=== PATIENT | female | born 1965 | race Caucasian/White ===

== ENCOUNTER 2018-09-30 07:16 | Outpatient (CLI) | payer OTHER ==
--- NOTE | 2018-09-30 10:03 | MRI ---
MRI OF BRAIN WITH AND WITHOUT CONTRAST: Multiple axial tomograms are obtained of the brain pre and post IV contrast administration. 14 cc Mu ltiHance was administered IV. INDICATION: Hypoesthesia of skin. Memory loss. FINDINGS: The ventricles have normal size and position. No evidence of restricted diffusion. No mass or edema . No white matter abnormality. No abnormal enhancement. Visualized intracranial internal carotid a rteries and cerebral arteries showed expected flow voids. Dural venous sinuses appear open. Paranasal sinuses and mastoids appear clear. IMPRESSION: Unremarkable MRI brain. POS: [facility]
[2018-09-30] MEDS ORDERED: Gadobenate Dimeglumine 529 MG/1 ML (20ML VIAL) ONE (13:27)
== END 2018-09-30 07:17 | disposition home or self-care (01) ==
LOC: BICMRI 07:16
PROVIDERS: ATTEND Psychiatry & Neurology Neurology
DX: R20.1 Hypoesthesia of skin (principal)
CPT/HCPCS: 70553; A9579

== ENCOUNTER 2021-11-25 21:15 | Inpatient (IN) | payer OTHER ==
[2021-11-25] MEDS ORDERED: Fentanyl 250 MCG/5 ML VIAL ONE (22:27)
[2021-11-25 23:07] LABS: SARS-CoV-2 NAA Rapid Test Not Detected (NotDetected)
[2021-11-25] MEDS ORDERED: Ondansetron PF 4 MG/2 ML Vial ONE (23:09)
[2021-11-25] MEDS ORDERED: Rocuronium Bromide 10 MG/ML (10ML VIAL) ONE (23:09)
[2021-11-25] MEDS ORDERED: Ketorolac Tromethamine 30 MG/ML VIAL ONE (23:09)
[2021-11-25] MEDS ORDERED: Lidocaine 1% PF 5 ML VIAL ONE (23:09)
[2021-11-25] MEDS ORDERED: Dexamethasone 20 MG/5 ML VIAL ONE (23:09)
[2021-11-25] MEDS ORDERED: PROPOFOL 200 MG/20 ML VIAL ONE ×2 (23:09)
[2021-11-25] MEDS ORDERED: Sodium Chloride 0.9% 30 ML ONE (23:29)
[2021-11-26] MEDS ORDERED: Promethazine HCl 25 MG/ML VIAL IVPB PRN ×2 (00:06→00:42)
[2021-11-26] MEDS ORDERED: Ondansetron HCl/PF 4 MG/2 ML Vial IVP PRN ×2 (00:06→00:42)
[2021-11-26] MEDS ORDERED: Meperidine HCl/PF 25 MG/ML VIAL SLOW IVP PRN (00:06)
[2021-11-26] MEDS ORDERED: Promethazine HCl 25 MG/ML VIAL IM PRN ×4 (00:06→00:42)
[2021-11-26] MEDS ORDERED: Ondansetron PF 4 MG/2 ML Vial IVP PRN ×2 (00:36→00:42)
[2021-11-26] MEDS ORDERED: hydrALAZINE 20 MG/ML VIAL SLOW IVP PRN (00:36)
[2021-11-26] MEDS ORDERED: diphenhydrAMINE 50 MG/ML VIAL IVP PRN (00:42)
[2021-11-26] MEDS ORDERED: PACU-Morphine 4MG/ML VIAL SLOW IVP PRN (00:42)
[2021-11-26] MEDS ORDERED: diphenhydrAMINE 25 MG CAP PO PRN (00:42)
[2021-11-26] MEDS ORDERED: Naloxone HCl 0.4 mg/ml Vial IV PRN (00:42)
[2021-11-26] MEDS ORDERED: diphenhydrAMINE 50 MG/ML VIAL IM PRN (00:42)
[2021-11-26] MEDS ORDERED: Zolpidem Tartrate 5 MG TAB PO PRN (00:42)
[2021-11-26] MEDS ORDERED: Communication Order-Pharmacy FS SCH (00:45)
[2021-11-26] MEDS ORDERED: Fentanyl 100 MCG/2 ML VIAL ONE ×3 (00:48→01:54)
[2021-11-26] MEDS ORDERED: Fentanyl CADD 100 ML IVPB PRN (01:00)
[2021-11-26 03:30] VITALS: BMI 23.9
[2021-11-26] MEDS: Sodium Chloride 0.9% 1,000 ML IV SCH ×3 (04:11→17:24)
[2021-11-26] MEDS ORDERED: Ketorolac Tromethamine 30 MG/ML VIAL IVP SCH (06:00)
[2021-11-26] MEDS ORDERED: Meropenem 1 GM in Sodium Chloride 0.9% 100 ML IVPB SCH (06:00)
[2021-11-26] MEDS: Ketorolac Tromethamine 30 MG/ML VIAL IVP SCH ×4 (06:08→23:08)
[2021-11-26] MEDS: Famotidine/PF 20 mg/2ml Vial SLOW IVP SCH ×2 (08:48→21:20)
[2021-11-26] MEDS: Enoxaparin Sodium 40 MG/0.4 ML SYRINGE SC SCH (08:49)
[2021-11-26] MEDS: Pantoprazole 40 MG VIAL IVP SCH ×2 (08:49→21:19)
[2021-11-26] MEDS: Famotidine 20 MG TAB PO SCH ×2 (09:00→20:30)
[2021-11-26] MEDS: Meropenem 1 GM in Sodium Chloride 0.9% 100 ML IVPB SCH ×2 (15:03→21:19)
[2021-11-26 16:16] LABS: #Lymphocytes 0.8 thou/uL (1.20-3.40); #Monocytes 0.8 thou/uL (0.11-0.59); %Basophils 0.1 % (0.0-1.0); %Lymphocytes 6.1 % (21.0-51.0); %Monocytes 6.7 % (0.0-10.0); %Neutrophils 87.2 % (42.0-75.0); Hemoglobin 12.6 g/dL (12.0-16.0); Mean Corpuscular HGB CONC 32.1 g/dL (32.0-36.0); Mean Corpuscular Hemoglobin 29.5 pg (27.0-31.0); Mean Corpuscular Volume 91.8 fL (78.0-98.0); Mean Platelet Volume 7.6 fL (7.4-10.4); Platelet Count 205 thou/uL (130-400); RBC Distribution Width 12.8 % (11.5-14.5); Red Blood Cell (RBC) Count 4.26 mill/uL (4.20-5.40); White Blood Cell (WBC) Count 12.6 thou/uL (4.8-10.8)
[2021-11-26 16:37] LABS: Anion Gap 10 mmol/L (10-20); BUN (Urea Nitrogen) 11 mg/dL (9.8-20.1); Calc. Creatinine Clearance 97 mL/min (70-130); Calcium 7.9 mg/dL (7.8-10.44); Carbon Dioxide 24 mmol/L (22-29); Chloride 112 mmol/L (98-107); Glucose 98 mg/dL (70-105); Potassium 4.6 mmol/L (3.5-5.1); Sodium 141 mmol/L (136-145)
[2021-11-27] MEDS: Sodium Chloride 0.9% 1,000 ML IV SCH ×3 (01:51→20:41)
[2021-11-27] MEDS: Meropenem 1 GM in Sodium Chloride 0.9% 100 ML IVPB SCH ×3 (05:07→22:33)
[2021-11-27] MEDS: Ketorolac Tromethamine 30 MG/ML VIAL IVP SCH ×3 (05:07→19:56)
[2021-11-27 05:13] LABS: #Monocytes 0.5 thou/uL (0.11-0.59); Mean Corpuscular Hemoglobin 29.8 pg (27.0-31.0); RBC Distribution Width 12.8 % (11.5-14.5)
[2021-11-27 05:22] LABS: #Lymphocytes 0.7 thou/uL (1.20-3.40); #Neutrophils 9.5 thou/uL (1.40-6.50); %Basophils 0.1 % (0.0-1.0); %Eosinophils 0.1 % (0.0-10.0); %Lymphocytes 6.6 % (21.0-51.0); %Monocytes 4.5 % (0.0-10.0); %Neutrophils 88.7 % (42.0-75.0); Hemoglobin 12.4 g/dL (12.0-16.0); Mean Corpuscular HGB CONC 32.6 g/dL (32.0-36.0); Mean Corpuscular Volume 91.5 fL (78.0-98.0); Mean Platelet Volume 8.5 fL (7.4-10.4); Platelet Count 206 thou/uL (130-400); Red Blood Cell (RBC) Count 4.15 mill/uL (4.20-5.40); White Blood Cell (WBC) Count 10.7 thou/uL (4.8-10.8)
[2021-11-27 05:36] LABS: Anion Gap 10 mmol/L (10-20); BUN (Urea Nitrogen) 16 mg/dL (9.8-20.1); Calc. Creatinine Clearance 100 mL/min (70-130); Calcium 8.2 mg/dL (7.8-10.44); Carbon Dioxide 22 mmol/L (22-29); Chloride 110 mmol/L (98-107); Glucose 84 mg/dL (70-105); Sodium 138 mmol/L (136-145)
[2021-11-27] MEDS: Famotidine/PF 20 mg/2ml Vial SLOW IVP SCH ×2 (08:31→20:42)
[2021-11-27] MEDS ORDERED: GASTROGRAFIN 30 ML BOT ONE (09:46)
[2021-11-27] MEDS: Enoxaparin Sodium 40 MG/0.4 ML SYRINGE SC SCH (09:56)
[2021-11-27] MEDS: Pantoprazole 40 MG VIAL IVP SCH ×2 (09:56→20:42)
[2021-11-27] MEDS: Famotidine 20 MG TAB PO SCH ×2 (09:56→20:42)
[2021-11-28] MEDS: Ketorolac Tromethamine 30 MG/ML VIAL IVP SCH ×5 (00:11→23:53)
[2021-11-28] MEDS: Meropenem 1 GM in Sodium Chloride 0.9% 100 ML IVPB SCH ×3 (05:47→22:41)
[2021-11-28] MEDS: Sodium Chloride 0.9% 1,000 ML IV SCH ×2 (05:49→20:16)
[2021-11-28] MEDS: Enoxaparin Sodium 40 MG/0.4 ML SYRINGE SC SCH (09:55)
[2021-11-28] MEDS: Famotidine/PF 20 mg/2ml Vial SLOW IVP SCH (09:55)
[2021-11-28] MEDS: Pantoprazole 40 MG VIAL IVP SCH ×2 (09:55→20:11)
[2021-11-28] MEDS: Famotidine 20 MG TAB PO SCH (09:57)
[2021-11-28] MEDS ORDERED: Diazepam 5 MG TAB PO PRN (10:04)
[2021-11-28] MEDS ORDERED: Temazepam 15 MG CAP PO PRN (10:04)
[2021-11-28] MEDS ORDERED: traMADol HCl 50 MG TAB PO PRN ×2 (10:12→10:13)
[2021-11-28] MEDS: OXcarbazepine 300 MG TAB PO SCH (20:11)
[2021-11-28] MEDS: HYDROcodone/Acetaminophen 5/325 mg Tablet PO PRN (20:18)
[2021-11-29] MEDS: Sodium Chloride 0.9% 1,000 ML IV SCH ×2 (06:04→12:12)
[2021-11-29] MEDS: Meropenem 1 GM in Sodium Chloride 0.9% 100 ML IVPB SCH (06:05)
[2021-11-29] MEDS: Ketorolac Tromethamine 30 MG/ML VIAL IVP SCH ×3 (06:05→17:44)
[2021-11-29] MEDS: DULoxetine 30 MG CAP PO SCH (08:42)
[2021-11-29] MEDS: OXcarbazepine 300 MG TAB PO SCH ×2 (08:42→20:44)
[2021-11-29] MEDS: lamoTRIgine 100 MG TAB PO SCH (08:42)
[2021-11-29] MEDS: Pantoprazole 40 MG VIAL IVP SCH ×2 (08:42→20:44)
[2021-11-29] MEDS: Propranolol HCl LA 60 MG CAP PO SCH (08:43)
[2021-11-29] MEDS ORDERED: FLU VACC QS2021-22(6MOS UP)/PF 60 MCG/0.5 ML SYRINGE IM ONE (09:00)
[2021-11-29] MEDS: Enoxaparin Sodium 40 MG/0.4 ML SYRINGE SC SCH (14:20)
[2021-11-29] MEDS: HYDROcodone/Acetaminophen 5/325 mg Tablet PO PRN (18:04)
[2021-11-29 22:00] VITALS: TEMP 98.2
[2021-11-30] MEDS: Sodium Chloride 0.9% 1,000 ML IV SCH ×2 (00:25→10:09)
[2021-11-30] MEDS: Ketorolac Tromethamine 30 MG/ML VIAL IVP SCH ×3 (00:37→12:04)
[2021-11-30] MEDS: HYDROcodone/Acetaminophen 5/325 mg Tablet PO PRN ×2 (01:42→06:23)
[2021-11-30 09:28] VITALS: BP 131/77
[2021-11-30] MEDS: OXcarbazepine 300 MG TAB PO SCH ×2 (10:07→10:42)
[2021-11-30] MEDS: DULoxetine 30 MG CAP PO SCH (10:07)
[2021-11-30] MEDS: lamoTRIgine 100 MG TAB PO SCH (10:07)
[2021-11-30] MEDS: Enoxaparin Sodium 40 MG/0.4 ML SYRINGE SC SCH (11:44)
[2021-11-30] MEDS: Propranolol HCl LA 60 MG CAP PO SCH (11:44)
[2021-11-30] MEDS: Pantoprazole 40 MG VIAL IVP SCH (11:44)
== END 2021-11-30 14:40 | disposition home or self-care (01) | DRG 330 ==
LOC: ERS 21:15 → SDC/OP 23:11 → MSONC 23:59
PROVIDERS: ADMIT Surgery; ATTEND Surgery
PROC: 0DQA0ZZ Repair Jejunum, Open Approach (ICD-10-PCS; principal; 2021-11-25)
PROC: 0DUU07Z Supplement Omentum with Autologous Tissue Substitute, Open Approach (ICD-10-PCS; 2021-11-25)
PROC: 02HV33Z Insertion of Infusion Device into Superior Vena Cava, Percutaneous Approach (ICD-10-PCS; 2021-11-25)
DX: K28.5 Chronic or unspecified gastrojejunal ulcer with perforation (principal); K52.1 Toxic gastroenteritis and colitis; Z20.822 Contact with and (suspected) exposure to COVID-19; I10 Essential (primary) hypertension; E78.5 Hyperlipidemia, unspecified; M79.7 Fibromyalgia; G62.9 Polyneuropathy, unspecified; M81.0 Age-related osteoporosis without current pathological fracture; F41.9 Anxiety disorder, unspecified; F31.9 Bipolar disorder, unspecified; F43.10 Post-traumatic stress disorder, unspecified; K66.8 Other specified disorders of peritoneum; F17.210 Nicotine dependence, cigarettes, uncomplicated; T36.95XA Adverse effect of unspecified systemic antibiotic, initial encounter; Z98.84 Bariatric surgery status; Z90.710 Acquired absence of both cervix and uterus; I25.2 Old myocardial infarction; Z88.0 Allergy status to penicillin; Z88.5 Allergy status to narcotic agent; Z88.8 Allergy status to other drugs, medicaments and biological substances; Z79.899 Other long term (current) drug therapy
CPT/HCPCS: 36415; 71045; 74220; 80048; 85025; 87324; 87449; 99285; C1751; C9113; J1100; J1650; J1885; J2185; J2405; J2704; J3010; J3490; J7050; Q9963; S0028; U0002

== ENCOUNTER 2022-04-22 13:52 | Emergency (ER) | payer OTHER ==
[2022-04-22 14:49] LABS: Acetaminophen Less than 10.0 mcg/mL (10.0-30.0)
[2022-04-23 01:26] LABS: SARS-CoV-2 NAA Rapid Test Not Detected (NotDetected)
[2022-04-23] MEDS ORDERED: Acetaminophen 500 MG TAB ONE (07:32)
== END 2022-04-23 09:48 ==
LOC: ERS 13:52
DX: T40.2X2A Poisoning by other opioids, intentional self-harm, initial encounter (principal); Z20.822 Contact with and (suspected) exposure to COVID-19; I10 Essential (primary) hypertension; E78.5 Hyperlipidemia, unspecified; M81.0 Age-related osteoporosis without current pathological fracture; F17.210 Nicotine dependence, cigarettes, uncomplicated; F20.9 Schizophrenia, unspecified; F41.9 Anxiety disorder, unspecified; F31.9 Bipolar disorder, unspecified
CPT/HCPCS: 36415; 80143; 99285; 80307; U0002

== ENCOUNTER 2024-08-22 17:37 | Inpatient (IN) | payer OTHER ==
[2024-08-22] MEDS ORDERED: fentaNYL PF 100 MCG/2 ML SYRINGE ONE (18:28)
[2024-08-22] MEDS ORDERED: PROPOFOL 20 ML ONE (18:28)
[2024-08-22] MEDS ORDERED: Lidocaine 2% PF 5 ML VIAL ONE (18:28)
[2024-08-22] MEDS ORDERED: Rocuronium Bromide 10 MG/ML (10ML VIAL) ONE (18:28)
[2024-08-22] MEDS ORDERED: Famotidine/PF 20 mg/2ml Vial ONE (18:30)
[2024-08-22] MEDS ORDERED: Morphine 2 MG/ML VIAL ONE (18:46)
[2024-08-22] MEDS ORDERED: Ondansetron PF 4 MG/2 ML Vial ONE ×2 (18:46→20:31)
[2024-08-22] MEDS ORDERED: PHENYLEPHRINE-NS 100 MCG/ML 10 ML SYRINGE ONE (20:07)
[2024-08-22] MEDS ORDERED: HYDROmorphone 2 MG/ML VIAL SLOW IVP PRN (20:25)
[2024-08-22] MEDS ORDERED: Ondansetron HCl/PF 4 MG/2 ML Vial IVP PRN (20:25)
[2024-08-22] MEDS ORDERED: Promethazine HCl 25 MG/ML VIAL IM PRN ×2 (20:25→21:29)
[2024-08-22] MEDS ORDERED: FENTANYL 500 MCG/10 ML VIAL 2,000 MCG in Sodium Chloride 0.9% 60 ML IV PRN (20:25)
[2024-08-22] MEDS ORDERED: Meperidine HCl/PF 25 MG/ML VIAL SLOW IVP PRN (20:25)
[2024-08-22] MEDS ORDERED: Dexamethasone 4 mg/ml Vial ONE (20:31)
[2024-08-22] MEDS ORDERED: SUGAMMADEX SODIUM 200 MG/2 ML VIAL ONE (20:31)
[2024-08-22] MEDS ORDERED: Ketorolac Tromethamine 30 MG (1 mL) VIAL ONE (20:31)
[2024-08-22] MEDS ORDERED: Ondansetron PF 4 MG/2 ML Vial IVP PRN (21:29)
[2024-08-22] MEDS ORDERED: Glucagon 1 MG/ML KIT IM PRN (21:29)
[2024-08-22] MEDS ORDERED: Dextrose 50% Abboject 50 ML SYRINGE SLOW IVP PRN (21:29)
[2024-08-22] MEDS ORDERED: Ipratropium/Albuterol 3 ML NEB NEB PRN (21:29)
[2024-08-22] MEDS ORDERED: hydrALAZINE 20 MG/ML VIAL SLOW IVP PRN (21:29)
[2024-08-22] MEDS ORDERED: Dextrose 5% in Water 1,000 ML IV PRN (21:29)
[2024-08-22 21:59] LABS: #Basophils Less than 0.03 10x3/uL (0.0-0.2); %Eosinophils 1.6 % (0.0-10.0); %Monocytes 4.6 % (0.0-10.0); %Neutrophils 84.4 % (42.0-75.0); Hematocrit 27.5 % (36.0-47.0); Hemoglobin 9.8 g/dL (12.0-16.0); Mean Corpuscular HGB CONC 35.6 g/dL (32.0-36.0); Mean Corpuscular Hemoglobin 27.3 pg (27.0-31.0); Mean Corpuscular Volume 76.6 fL (78.0-98.0); Mean Platelet Volume 8.8 fL (7.4-10.4); Platelet Count 347 10x3/uL (130-400); RBC Distribution Width 17.6 % (11.5-14.5); Red Blood Cell (RBC) Count 3.59 mill/uL (4.20-5.40)
[2024-08-22] MEDS: D5 1/2 NS w/20 mEq KCL 1,000 ML IV SCH (21:59)
[2024-08-22] MEDS ORDERED: D5 1/2 NS w/20 mEq KCL 1,000 ML ONE (21:59)
[2024-08-22 22:24] LABS: ALT (SGPT) 25 U/L (8-55); AST (SGOT) 37 U/L (5-34); Albumin 1.3 g/dL (3.5-5.0); Alkaline Phosphatase 152 U/L (40-110); Anion Gap 13 mmol/L (10-20); BUN (Urea Nitrogen) 8 mg/dL (9.8-20.1); Bilirubin, Total 0.6 mg/dL (0.2-1.2); Calc. Creatinine Clearance 0 mL/min (70-130); Calcium 6.9 mg/dL (7.8-10.44); Carbon Dioxide 23 mmol/L (22-29); Chloride 102 mmol/L (98-107); Estimated GFR 112; Globulin 2.7 g/dL (2.4-3.5); Glucose 76 mg/dL (70-105); Sodium 135 mmol/L (136-145)
[2024-08-22] MEDS: metroNIDAZOLE 500 MG in Premix 1 BAG IVPB SCH (23:27)
[2024-08-22] MEDS: CALCIUM GLUCONATE IVPB SCH (23:28)
[2024-08-22] MEDS: SODIUM CHLORIDE 0.9% IVPB SCH (23:28)
[2024-08-23 06:30] LABS: #Basophils Less than 0.03 10x3/uL (0.0-0.2); #Eosinophils Less than 0.03 10x3/uL (0.0-0.7); %Basophils 0.1 % (0.0-1.0); %Lymphocytes 1.7 % (21.0-51.0); %Neutrophils 92.7 % (42.0-75.0); Hematocrit 28.5 % (36.0-47.0); Hemoglobin 9.8 g/dL (12.0-16.0); Mean Corpuscular HGB CONC 34.4 g/dL (32.0-36.0); Mean Corpuscular Hemoglobin 26.8 pg (27.0-31.0); Mean Corpuscular Volume 78.1 fL (78.0-98.0); Mean Platelet Volume 9.4 fL (7.4-10.4); Platelet Count 386 10x3/uL (130-400); RBC Distribution Width 18.3 % (11.5-14.5); Red Blood Cell (RBC) Count 3.65 mill/uL (4.20-5.40)
[2024-08-23 07:11] LABS: Anion Gap 10 mmol/L (10-20); BUN (Urea Nitrogen) 7 mg/dL (9.8-20.1); Calc. Creatinine Clearance 0 mL/min (70-130); Calcium 7.3 mg/dL (7.8-10.44); Carbon Dioxide 23 mmol/L (22-29); Chloride 104 mmol/L (98-107); Estimated GFR 107; Glucose 174 mg/dL (70-105); Potassium 3.8 mmol/L (3.5-5.1); Sodium 133 mmol/L (136-145)
[2024-08-23] MEDS: D5 1/2 NS w/20 mEq KCL 1,000 ML IV SCH (08:02)
[2024-08-23] MEDS: Enoxaparin 40 MG (0.4 mL) SYRINGE SC SCH (08:07)
[2024-08-23] MEDS: Fluconazole In NaCl,Iso-Osm 200 MG in Premix 1 BAG IVPB SCH (08:08)
[2024-08-23] MEDS: Pantoprazole 40 MG VIAL IVP SCH (08:08)
[2024-08-23] MEDS: CALCIUM GLUC 1 GM/NS 50 ML 1 GM in Premix 1 BAG IVPB SCH (10:42)
[2024-08-23 15:16] LABS: Magnesium 2.1 mg/dL (1.6-2.6)
[2024-08-23] MEDS: Sodium Chloride 0.9% 1,000 ML IV SCH (15:40)
[2024-08-23] MEDS: Midodrine HCl 5 MG TAB PO SCH (15:41)
[2024-08-23] MEDS: Nicotine 14 MG PATCH TD SCH (15:41)
[2024-08-23 16:09] LABS: Vitamin D, 25 Hydroxy 23.7 ng/ml (> 30.0)
[2024-08-23] MEDS ORDERED: Thiamine HCl 500 MG in Sodium Chloride 0.9% 250 ML 250 ML IVPB SCH (17:00)
[2024-08-23] MEDS: LevoFLOXacin 500 mg/D5W 500 MG in Premix 1 BAG IVPB SCH (17:20)
[2024-08-23] MEDS: Thiamine HCl 500 MG in Sodium Chloride 0.9% 250 ML 250 ML IVPB SCH (21:44)
[2024-08-23] MEDS: OLANZapine 5 MG TAB PO SCH (21:45)
[2024-08-23] MEDS: OXcarbazepine 300 MG TAB PO SCH (21:45)
[2024-08-23] MEDS: lamoTRIgine 100 MG TAB PO SCH (21:46)
[2024-08-24 07:45] LABS: #Basophils Less than 0.03 10x3/uL (0.0-0.2); %Basophils 0.1 % (0.0-1.0); %Eosinophils 0.8 % (0.0-10.0); %Lymphocytes 8.4 % (21.0-51.0); %Monocytes 9.6 % (0.0-10.0); %Neutrophils 80.7 % (42.0-75.0); Hematocrit 26.3 % (36.0-47.0); Hemoglobin 9.1 g/dL (12.0-16.0); Mean Corpuscular HGB CONC 34.6 g/dL (32.0-36.0); Mean Corpuscular Hemoglobin 26.7 pg (27.0-31.0); Mean Corpuscular Volume 77.1 fL (78.0-98.0); Platelet Count 389 10x3/uL (130-400); RBC Distribution Width 18.5 % (11.5-14.5); Red Blood Cell (RBC) Count 3.41 mill/uL (4.20-5.40)
[2024-08-24 08:08] LABS: ALT (SGPT) 22 U/L (8-55); AST (SGOT) 22 U/L (5-34); Albumin 1.2 g/dL (3.5-5.0); Alkaline Phosphatase 142 U/L (40-110); Anion Gap 9 mmol/L (10-20); BUN (Urea Nitrogen) 7 mg/dL (9.8-20.1); Bilirubin, Total 0.6 mg/dL (0.2-1.2); Calc. Creatinine Clearance 0 mL/min (70-130); Calcium 7.2 mg/dL (7.8-10.44); Carbon Dioxide 24 mmol/L (22-29); Chloride 104 mmol/L (98-107); Estimated GFR 110; Globulin 2.9 g/dL (2.4-3.5); Glucose 79 mg/dL (70-105); Phosphorus 3.2 mg/dL (2.3-4.7); Potassium 3.5 mmol/L (3.5-5.1); Protein, Total 4.1 g/dL (6.0-8.3); Sodium 133 mmol/L (136-145)
[2024-08-24] MEDS ORDERED: Fentanyl 100 MCG/2 ML VIAL SLOW IVP PRN (08:45)
[2024-08-24] MEDS ORDERED: fentaNYL 50 mcg/mL 1 mL Vial SLOW IVP PRN (08:50)
[2024-08-24] MEDS ORDERED: Enoxaparin 80 MG (0.8 mL) SYRINGE SC SCH (09:00)
[2024-08-24] MEDS: Sodium Chloride 0.9% 1,000 ML IV SCH (09:05)
[2024-08-24] MEDS: Enoxaparin 80 MG (0.8 mL) SYRINGE SC SCH (09:06)
[2024-08-24] MEDS: Thiamine HCl 200 MG/2 ML VIAL SLOW IVP SCH (09:07)
[2024-08-24] MEDS: Propranolol HCl LA 60 MG CAP PO SCH (09:07)
[2024-08-24 09:53] VITALS: BMI 25.4
[2024-08-24] MEDS: Ergocalciferol 1.25 MG(50,000 UNITS) CAP PO SCH (11:58)
[2024-08-25] MEDS: Hydrocodone-Acetamin 15 ML UDCUP PER TUBE PRN (10:07)
[2024-08-26] MEDS: Sodium Chloride 0.9% 1,000 ML IV SCH (03:49)
[2024-08-26] MEDS: Diazepam 5 MG TAB PO PRN (06:06)
[2024-08-26] MEDS: FLU (Fluarix Triv) TS24-25(6MOS UP)/PF 45 MCG/0.5 ML Syringe IM ONE (10:13)
[2024-08-27] MEDS: Apixaban 5 MG TAB PO SCH (09:56)
[2024-08-28 08:16] LABS: #Basophils Less than 0.03 10x3/uL (0.0-0.2); %Basophils 0.2 % (0.0-1.0); %Eosinophils 3.5 % (0.0-10.0); %Lymphocytes 11.6 % (21.0-51.0); %Monocytes 9.1 % (0.0-10.0); %Neutrophils 74.1 % (42.0-75.0); Hematocrit 26.7 % (36.0-47.0); Hemoglobin 8.8 g/dL (12.0-16.0); Mean Corpuscular Volume 81.9 fL (78.0-98.0); Mean Platelet Volume 9.7 fL (7.4-10.4); Platelet Count 433 10x3/uL (130-400); RBC Distribution Width 20.2 % (11.5-14.5); Red Blood Cell (RBC) Count 3.26 mill/uL (4.20-5.40)
[2024-08-28 08:37] LABS: Anion Gap 9 mmol/L (10-20); BUN (Urea Nitrogen) 11 mg/dL (9.8-20.1); Calc. Creatinine Clearance 138 mL/min (70-130); Calcium 7.3 mg/dL (7.8-10.44); Carbon Dioxide 28 mmol/L (22-29); Chloride 107 mmol/L (98-107); Estimated GFR 112; Glucose 114 mg/dL (70-105); Potassium 4.5 mmol/L (3.5-5.1); Sodium 139 mmol/L (136-145)
[2024-08-28] MEDS: Propranolol HCl LA 60 MG CAP PO SCH (09:40)
[2024-08-29] MEDS: Multivit, Chewable SF 1 TAB PO SCH (09:25)
[2024-08-29] MEDS: Polyethylene Glycol 3350 17 GM Packet PER TUBE SCH (09:26)
[2024-08-30 07:53] LABS: #Basophils 0.06 10x3/uL (0.0-0.2); %Basophils 0.5 % (0.0-1.0); %Eosinophils 3.4 % (0.0-10.0); %Lymphocytes 12.9 % (21.0-51.0); %Monocytes 9.6 % (0.0-10.0); %Neutrophils 71.3 % (42.0-75.0); Hematocrit 30.9 % (36.0-47.0); Mean Corpuscular HGB CONC 32.4 g/dL (32.0-36.0); Mean Corpuscular Hemoglobin 26.9 pg (27.0-31.0); Mean Corpuscular Volume 83.1 fL (78.0-98.0); Mean Platelet Volume 9.8 fL (7.4-10.4); Platelet Count 477 10x3/uL (130-400); RBC Distribution Width 21.9 % (11.5-14.5); Red Blood Cell (RBC) Count 3.72 mill/uL (4.20-5.40)
[2024-08-30] MEDS: Polyethylene Glycol 3350 17 GM Packet PER TUBE SCH (07:56)
[2024-08-30 08:11] LABS: Anion Gap 8 mmol/L (10-20); BUN (Urea Nitrogen) 10 mg/dL (9.8-20.1); Calc. Creatinine Clearance 133 mL/min (70-130); Calcium 7.6 mg/dL (7.8-10.44); Carbon Dioxide 26 mmol/L (22-29); Chloride 104 mmol/L (98-107); Estimated GFR 110; Glucose 110 mg/dL (70-105); Potassium 4.8 mmol/L (3.5-5.1); Sodium 133 mmol/L (136-145)
[2024-08-31 05:55] LABS: #Basophils 0.06 10x3/uL (0.0-0.2); %Basophils 0.5 % (0.0-1.0); %Eosinophils 3.1 % (0.0-10.0); %Lymphocytes 11.5 % (21.0-51.0); %Monocytes 9.2 % (0.0-10.0); %Neutrophils 73.8 % (42.0-75.0); Hematocrit 30.6 % (36.0-47.0); Hemoglobin 9.8 g/dL (12.0-16.0); Mean Corpuscular Volume 84.3 fL (78.0-98.0); Mean Platelet Volume 9.8 fL (7.4-10.4); Platelet Count 452 10x3/uL (130-400); RBC Distribution Width 22.4 % (11.5-14.5); Red Blood Cell (RBC) Count 3.63 mill/uL (4.20-5.40)
[2024-08-31 06:13] LABS: Anion Gap 9 mmol/L (10-20); BUN (Urea Nitrogen) 9 mg/dL (9.8-20.1); Calc. Creatinine Clearance 136 mL/min (70-130); Calcium 7.7 mg/dL (7.8-10.44); Carbon Dioxide 23 mmol/L (22-29); Chloride 105 mmol/L (98-107); Estimated GFR 111; Glucose 101 mg/dL (70-105); Phosphorus 3.2 mg/dL (2.3-4.7); Potassium 4.6 mmol/L (3.5-5.1); Sodium 132 mmol/L (136-145)
[2024-08-31] MEDS: Furosemide 40 MG (4 mL) VIAL SLOW IVP SCH (15:43)
[2024-08-31] MEDS: Polyethylene Glycol 3350 17 GM Packet PER TUBE SCH (20:32)
[2024-09-01 05:03] LABS: #Basophils 0.04 10x3/uL (0.0-0.2); %Basophils 0.3 % (0.0-1.0); %Eosinophils 1.2 % (0.0-10.0); %Lymphocytes 12.8 % (21.0-51.0); %Monocytes 8.8 % (0.0-10.0); %Neutrophils 75.2 % (42.0-75.0); Hematocrit 26.5 % (36.0-47.0); Hemoglobin 8.6 g/dL (12.0-16.0); Mean Corpuscular HGB CONC 32.5 g/dL (32.0-36.0); Mean Corpuscular Hemoglobin 27.3 pg (27.0-31.0); Mean Corpuscular Volume 84.1 fL (78.0-98.0); Mean Platelet Volume 9.5 fL (7.4-10.4); Platelet Count 552 10x3/uL (130-400); Red Blood Cell (RBC) Count 3.15 mill/uL (4.20-5.40)
[2024-09-01 05:24] LABS: Anion Gap 9 mmol/L (10-20); BUN (Urea Nitrogen) 13 mg/dL (9.8-20.1); Calc. Creatinine Clearance 142 mL/min (70-130); Calcium 7.6 mg/dL (7.8-10.44); Carbon Dioxide 29 mmol/L (22-29); Chloride 100 mmol/L (98-107); Estimated GFR 112; Glucose 85 mg/dL (70-105); Sodium 134 mmol/L (136-145)
[2024-09-02 06:02] LABS: #Basophils 0.04 10x3/uL (0.0-0.2); %Basophils 0.4 % (0.0-1.0); %Lymphocytes 15.7 % (21.0-51.0); %Monocytes 8.9 % (0.0-10.0); %Neutrophils 69.8 % (42.0-75.0); Hematocrit 25.2 % (36.0-47.0); Hemoglobin 8.3 g/dL (12.0-16.0); Mean Corpuscular HGB CONC 32.9 g/dL (32.0-36.0); Mean Corpuscular Hemoglobin 27.5 pg (27.0-31.0); Mean Corpuscular Volume 83.4 fL (78.0-98.0); Mean Platelet Volume 9.6 fL (7.4-10.4); Platelet Count 621 10x3/uL (130-400); RBC Distribution Width 21.6 % (11.5-14.5); Red Blood Cell (RBC) Count 3.02 mill/uL (4.20-5.40)
[2024-09-02 06:20] LABS: ALT (SGPT) 8 U/L (8-55); AST (SGOT) 24 U/L (5-34); Albumin 1.1 g/dL (3.5-5.0); Alkaline Phosphatase 135 U/L (40-110); Anion Gap 8 mmol/L (10-20); BUN (Urea Nitrogen) 11 mg/dL (9.8-20.1); Bilirubin, Total 0.2 mg/dL (0.2-1.2); Calc. Creatinine Clearance 152 mL/min (70-130); Calcium 7.4 mg/dL (7.8-10.44); Carbon Dioxide 27 mmol/L (22-29); Chloride 98 mmol/L (98-107); Estimated GFR 114; Globulin 3.2 g/dL (2.4-3.5); Glucose 96 mg/dL (70-105); Potassium 4.2 mmol/L (3.5-5.1); Protein, Total 4.3 g/dL (6.0-8.3); Sodium 129 mmol/L (136-145)
[2024-09-02] MEDS: Pantoprazole DR 40 MG TAB PO SCH (09:43)
[2024-09-02] MEDS: Sodium Chloride 0.9% 1,000 ML IV SCH (09:47)
[2024-09-03 05:46] LABS: #Basophils 0.04 10x3/uL (0.0-0.2); %Basophils 0.4 % (0.0-1.0); %Eosinophils 1.1 % (0.0-10.0); %Monocytes 10.4 % (0.0-10.0); %Neutrophils 75.4 % (42.0-75.0); Hematocrit 25.8 % (36.0-47.0); Hemoglobin 8.7 g/dL (12.0-16.0); Mean Corpuscular HGB CONC 33.7 g/dL (32.0-36.0); Mean Corpuscular Hemoglobin 27.4 pg (27.0-31.0); Mean Corpuscular Volume 81.1 fL (78.0-98.0); Mean Platelet Volume 9.3 fL (7.4-10.4); Platelet Count 605 10x3/uL (130-400); Red Blood Cell (RBC) Count 3.18 mill/uL (4.20-5.40)
[2024-09-03] MEDS: Sodium Chloride 1 GM TAB PO SCH (09:37)
[2024-09-03] MEDS: Sodium Chloride 0.9% 1,000 ML IV SCH (09:38)
[2024-09-03] MEDS: Apixaban 5 MG TAB PO SCH (09:38)
[2024-09-04 05:03] LABS: #Basophils 0.03 10x3/uL (0.0-0.2); %Basophils 0.3 % (0.0-1.0); %Eosinophils 0.5 % (0.0-10.0); %Lymphocytes 16.6 % (21.0-51.0); %Monocytes 11.5 % (0.0-10.0); %Neutrophils 70.5 % (42.0-75.0); Hematocrit 22.3 % (36.0-47.0); Hemoglobin 7.6 g/dL (12.0-16.0); Mean Corpuscular HGB CONC 34.1 g/dL (32.0-36.0); Mean Corpuscular Hemoglobin 27.7 pg (27.0-31.0); Mean Corpuscular Volume 81.4 fL (78.0-98.0); Mean Platelet Volume 9.4 fL (7.4-10.4); Platelet Count 625 10x3/uL (130-400); Red Blood Cell (RBC) Count 2.74 mill/uL (4.20-5.40)
[2024-09-04 05:19] LABS: Anion Gap 8 mmol/L (10-20); BUN (Urea Nitrogen) 7 mg/dL (9.8-20.1); Calc. Creatinine Clearance 159 mL/min (70-130); Calcium 7.1 mg/dL (7.8-10.44); Carbon Dioxide 25 mmol/L (22-29); Chloride 99 mmol/L (98-107); Estimated GFR 115; Glucose 95 mg/dL (70-105); Magnesium 1.6 mg/dL (1.6-2.6); Sodium 128 mmol/L (136-145)
[2024-09-04] MEDS: Folic Acid 1 MG TAB PER TUBE SCH (09:02)
[2024-09-04] MEDS: Calcium Carbonate 600 MG + Vit D TAB PO SCH (09:02)
[2024-09-04] MEDS: Thiamine 100 MG TAB PER TUBE SCH (09:03)
[2024-09-04] MEDS: Multivits W-Minerals Liquid 15 ML UDCUP PER TUBE SCH (09:04)
[2024-09-04] MEDS: Magnesium 2 GM/50 ML(in water) 2 GM in Premix 1 BAG IVPB SCH (10:23)
[2024-09-05 04:47] LABS: #Basophils 0.05 10x3/uL (0.0-0.2); %Basophils 0.7 % (0.0-1.0); %Eosinophils 0.8 % (0.0-10.0); %Lymphocytes 18.1 % (21.0-51.0); %Monocytes 13.2 % (0.0-10.0); %Neutrophils 66.5 % (42.0-75.0); Hematocrit 25.4 % (36.0-47.0); Hemoglobin 8.2 g/dL (12.0-16.0); Mean Corpuscular HGB CONC 32.3 g/dL (32.0-36.0); Mean Corpuscular Hemoglobin 27.8 pg (27.0-31.0); Mean Corpuscular Volume 86.1 fL (78.0-98.0); Platelet Count 643 10x3/uL (130-400); RBC Distribution Width 22.2 % (11.5-14.5); Red Blood Cell (RBC) Count 2.95 mill/uL (4.20-5.40)
[2024-09-05 05:20] LABS: Anion Gap 7 mmol/L (10-20); BUN (Urea Nitrogen) 6 mg/dL (9.8-20.1); Calc. Creatinine Clearance 148 mL/min (70-130); Calcium 7.4 mg/dL (7.8-10.44); Carbon Dioxide 26 mmol/L (22-29); Chloride 100 mmol/L (98-107); Estimated GFR 113; Glucose 97 mg/dL (70-105); Potassium 3.9 mmol/L (3.5-5.1); Sodium 129 mmol/L (136-145)
[2024-09-05] MEDS: busPIRone HCl 10 MG TAB PO PRN (20:58)
[2024-09-06 06:03] LABS: Anion Gap 9 mmol/L (10-20); BUN (Urea Nitrogen) 7 mg/dL (9.8-20.1); Calc. Creatinine Clearance 130 mL/min (70-130); Calcium 7.3 mg/dL (7.8-10.44); Carbon Dioxide 26 mmol/L (22-29); Chloride 97 mmol/L (98-107); Estimated GFR 110; Glucose 83 mg/dL (70-105); Magnesium 1.6 mg/dL (1.6-2.6); Potassium 3.9 mmol/L (3.5-5.1); Sodium 128 mmol/L (136-145)
[2024-09-06] MEDS: Albumin 25% 25 GM (100 mL) BOT IVPB SCH (09:10)
[2024-09-06] MEDS: Furosemide 40 MG (4 mL) VIAL SLOW IVP SCH (09:11)
[2024-09-06] MEDS: Magnesium Sulfate In Water 4 GM in Premix 1 BAG IVPB SCH (10:19)
[2024-09-06 18:54] LABS: Anion Gap 11 mmol/L (10-20); BUN (Urea Nitrogen) 8 mg/dL (9.8-20.1); Calc. Creatinine Clearance 127 mL/min (70-130); Calcium 7.6 mg/dL (7.8-10.44); Carbon Dioxide 28 mmol/L (22-29); Chloride 95 mmol/L (98-107); Estimated GFR 109; Glucose 88 mg/dL (70-105); Potassium 3.5 mmol/L (3.5-5.1); Sodium 130 mmol/L (136-145)
[2024-09-07 05:53] LABS: #Basophils 0.04 10x3/uL (0.0-0.2); %Basophils 0.5 % (0.0-1.0); %Eosinophils 4.9 % (0.0-10.0); %Lymphocytes 17.8 % (21.0-51.0); %Neutrophils 65.3 % (42.0-75.0); Hematocrit 20.9 % (36.0-47.0); Hemoglobin 7.1 g/dL (12.0-16.0); Mean Corpuscular Hemoglobin 27.8 pg (27.0-31.0); Platelet Count 627 10x3/uL (130-400); RBC Distribution Width 21.5 % (11.5-14.5); Red Blood Cell (RBC) Count 2.55 mill/uL (4.20-5.40)
[2024-09-07 06:03] LABS: Anion Gap 9 mmol/L (10-20); BUN (Urea Nitrogen) 7 mg/dL (9.8-20.1); Calc. Creatinine Clearance 152 mL/min (70-130); Calcium 7.5 mg/dL (7.8-10.44); Carbon Dioxide 27 mmol/L (22-29); Chloride 94 mmol/L (98-107); Estimated GFR 114; Glucose 88 mg/dL (70-105); Magnesium 1.8 mg/dL (1.6-2.6); Potassium 4.1 mmol/L (3.5-5.1); Sodium 126 mmol/L (136-145)
[2024-09-07 08:49] LABS: Hematocrit 22.6 % (36.0-47.0); Hemoglobin 7.5 g/dL (12.0-16.0)
[2024-09-07 17:52] LABS: Creatinine, Urine 34.11 mg/dL (47-110); Protein, Urine Random Quant Less than 10 mg/dL (1-14)
[2024-09-08 05:28] LABS: Iron 20 ug/dL (50-170); Iron Binding Capacity, Total 101 mcg/dL (265-497)
[2024-09-08 05:42] LABS: Anion Gap 11 mmol/L (10-20); BUN (Urea Nitrogen) 8 mg/dL (9.8-20.1); Calc. Creatinine Clearance 127 mL/min (70-130); Calcium 7.7 mg/dL (7.8-10.44); Carbon Dioxide 26 mmol/L (22-29); Chloride 97 mmol/L (98-107); Estimated GFR 109; Glucose 93 mg/dL (70-105); Potassium 3.8 mmol/L (3.5-5.1); Sodium 130 mmol/L (136-145)
[2024-09-08] MEDS: Ferrous Sulfate 325 MG TAB PO SCH ×2 (09:50→18:05)
[2024-09-08] MEDS: Calcium Carbonate 600 MG + Vit D TAB PO SCH (13:05)
[2024-09-09 06:17] LABS: Anion Gap 10 mmol/L (10-20); BUN (Urea Nitrogen) 7 mg/dL (9.8-20.1); Calc. Creatinine Clearance 138 mL/min (70-130); Calcium 7.6 mg/dL (7.8-10.44); Carbon Dioxide 25 mmol/L (22-29); Chloride 102 mmol/L (98-107); Estimated GFR 112; Glucose 94 mg/dL (70-105); Potassium 3.9 mmol/L (3.5-5.1); Sodium 133 mmol/L (136-145)
[2024-09-09] MEDS: Ondansetron ODT 4 MG TAB PO PRN (08:48)
[2024-09-09] MEDS: Acetaminophen 500 MG TAB PO SCH (08:51)
[2024-09-09] MEDS: SUMAtriptan Succinate 50 MG TAB PO PRN (12:58)
[2024-09-09] MEDS: Acetaminophen 500 MG TAB PO PRN (15:56)
[2024-09-10 06:37] LABS: Anion Gap 12 mmol/L (10-20); BUN (Urea Nitrogen) 8 mg/dL (9.8-20.1); Calc. Creatinine Clearance 125 mL/min (70-130); Carbon Dioxide 24 mmol/L (22-29); Chloride 100 mmol/L (98-107); Estimated GFR 109; Glucose 90 mg/dL (70-105); Potassium 4.1 mmol/L (3.5-5.1); Sodium 132 mmol/L (136-145)
[2024-09-10 06:57] LABS: Calcium 8.5 mg/dL (7.8-10.44)
[2024-09-10 09:17] LABS: Kappa Lambda Light Chain Ratio 0.59 (0.26-1.65); Kappa Light Chains 40.3 mg/L (3.3-19.4); Lambda Light Chain 67.8 mg/L (5.7-26.3)
[2024-09-10 14:17] LABS: Albumin-Ur 33.3 % (.); Alpha 1 - Ur 7.6 % (.); Alpha 2 - Ur 14.9 % (.); Beta-Ur 28.1 % (.); Gamma-Ur 16.2 % (.); M-Spike,% Not Observed % (Not Observed); Protein, Urine 9.4 mg/dL (Not Estab.)
[2024-09-10 14:17] LABS: A/G Ratio 0.8 (0.7-1.7); Alpha 1 0.3 g/dL (0.0-0.4); Alpha 2 0.8 g/dL (0.4-1.0); Beta 0.8 g/dL (0.7-1.3); Gamma 0.7 g/dL (0.4-1.8); Globulin, Total 2.6 g/dL (2.2-3.9); M-Spike Not Observed g/dL (Not Observed)
[2024-09-12 07:36] LABS: Anion Gap 12 mmol/L (10-20); BUN (Urea Nitrogen) 16 mg/dL (9.8-20.1); Calc. Creatinine Clearance 138 mL/min (70-130); Calcium 8.1 mg/dL (7.8-10.44); Carbon Dioxide 25 mmol/L (22-29); Chloride 100 mmol/L (98-107); Estimated GFR 112; Glucose 97 mg/dL (70-105); Potassium 3.9 mmol/L (3.5-5.1); Sodium 133 mmol/L (136-145)
[2024-09-13 16:21] LABS: Anion Gap 11 mmol/L (10-20); BUN (Urea Nitrogen) 14 mg/dL (9.8-20.1); Calc. Creatinine Clearance 127 mL/min (70-130); Carbon Dioxide 23 mmol/L (22-29); Chloride 101 mmol/L (98-107); Estimated GFR 109; Glucose 87 mg/dL (70-105); Sodium 131 mmol/L (136-145)
[2024-09-14 07:18] LABS: Anion Gap 12 mmol/L (10-20); BUN (Urea Nitrogen) 15 mg/dL (9.8-20.1); Calc. Creatinine Clearance 125 mL/min (70-130); Calcium 8.2 mg/dL (7.8-10.44); Carbon Dioxide 23 mmol/L (22-29); Chloride 100 mmol/L (98-107); Estimated GFR 109; Glucose 106 mg/dL (70-105); Potassium 4.2 mmol/L (3.5-5.1); Sodium 131 mmol/L (136-145)
[2024-09-15 05:31] VITALS: TEMP 98.6
[2024-09-15 06:09] LABS: Anion Gap 16 mmol/L (10-20); BUN (Urea Nitrogen) 14 mg/dL (9.8-20.1); Calc. Creatinine Clearance 116 mL/min (70-130); Carbon Dioxide 18 mmol/L (22-29); Chloride 100 mmol/L (98-107); Estimated GFR 107; Glucose 116 mg/dL (70-105); Sodium 130 mmol/L (136-145)
[2024-09-15 08:23] VITALS: BP 122/71
== END 2024-09-15 14:05 | disposition home or self-care (01) | DRG 326 ==
LOC: ERS 17:37 → SURG B 19:29 → SDC/OP 19:29 → SURG B 23:03
PROVIDERS: ADMIT Surgery; ATTEND Internal Medicine
PROC: 0DB60ZZ Excision of Stomach, Open Approach (ICD-10-PCS; principal; 2024-08-22)
PROC: 0D160ZA Bypass Stomach to Jejunum, Open Approach (ICD-10-PCS; 2024-08-22)
PROC: 0DH60UZ Insertion of Feeding Device into Stomach, Open Approach (ICD-10-PCS; 2024-08-22)
DX: K28.5 Chronic or unspecified gastrojejunal ulcer with perforation (principal); G93.41 Metabolic encephalopathy; E46 Unspecified protein-calorie malnutrition; I82.443 Acute embolism and thrombosis of tibial vein, bilateral; E87.1 Hypo-osmolality and hyponatremia; F31.9 Bipolar disorder, unspecified; I10 Essential (primary) hypertension; E78.5 Hyperlipidemia, unspecified; F43.10 Post-traumatic stress disorder, unspecified; G24.01 Drug induced subacute dyskinesia; D63.8 Anemia in other chronic diseases classified elsewhere; E88.09 Other disorders of plasma-protein metabolism, not elsewhere classified; E87.8 Other disorders of electrolyte and fluid balance, not elsewhere classified; R53.81 Other malaise; F17.200 Nicotine dependence, unspecified, uncomplicated; E55.9 Vitamin D deficiency, unspecified; Z88.8 Allergy status to other drugs, medicaments and biological substances; Z88.0 Allergy status to penicillin; Z98.84 Bariatric surgery status; D50.9 Iron deficiency anemia, unspecified; Z68.25 Body mass index [BMI] 25.0-25.9, adult
CPT/HCPCS: 36415; 71045; 80048; 80053; 82140; 82306; 82310; 82570; 82607; 82728; 83540; 83550; 83735; 83883; 83930; 83935; 84100; 84134; 84155; 84156; 84165; 84166; 84300; 84425; 84443; 85025; 87086; 88307; 88342; 93970; 94760; 96374; 96375; 97139; A4314; A4649; B4087; C1751; J0612; J0613; J1100; J1450; J1650; J1885; J1940; J1956; J2272; J2405; J2470; J2704; J3010; J3411; J3475; J3480; J3490; J7030; J7050; P9047; Q0162